=== PATIENT | male | born 1945 | race Caucasian/White ===

== ENCOUNTER 2020-05-24 10:07 | Observation (INO) ==
[2020-05-24] MEDS ORDERED: IOPAMIDOL 100 ML BOTTLE IV ONE (10:08)
[2020-05-24 10:25] LABS: POC Blood Urea Nitrogen 22 mg/dl (8-23); POC CO2 24 mmol/L (22-30); POC Calcium, Ionized 1.08 mmol/L (1.16-1.32); POC Chloride 104 mmol/L (96-108); POC Creatinine 1.1 mg/dl (0.7-1.2); POC Glucose, Random 96 mg/dL (70-105); POC Potassium 3.9 mmol/L (3.3-5.1); POC Sodium 140 mmol/L (133-145)
--- NOTE | 2020-05-24 10:31 | Cat Scan Report ---
History: Acute stroke symptoms TECHNIQUE: The brain was imaged without contrast at 2.5 mm intervals. The radiation exposure was limited using dose reduction technology. FINDINGS: There is a moderate-sized old infarct with encephalomalacia involving cortex and subcortical white matter laterally in the right frontal lobe. There is also a large old lacunar infarct with encephalomalacia in the anterior limb of the right internal capsule and involving the lateral border of the head of the right caudate nucleus. A small old cortical infarct is present high and posteriorly in the right parietal lobe. No acute infarct is identified. There is no hemorrhage or mass effect. Patient has mild to moderate bilateral frontal and milder temporal and cerebellar atrophy. No abnormal extra-axial fluid collection is present. The ventricles are normal in size allowing for atrophy. There is no prior study available for comparison. 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
[2020-05-24 10:44] LABS: POC Pro Time 11.6 sec (11.9-14.5)
--- NOTE | 2020-05-24 11:11 | Cat Scan Report ---
History: Acute stroke symptoms TECHNIQUE: Following injection of intravenous nonionic contrast, arterial phase images were acquired of the head and neck. Sagittal and coronal images were created both head and neck separately. Curvilinear reformatted images were also created of the cervical carotid arteries. Radiation exposure was limited using dose reduction technology. FINDINGS: NECK: The aortic arch is normal in caliber and there is minimal plaque formation. Great vessels arising from the aorta are normal. Common carotid arteries are normal bilaterally. Small amount calcified plaque is present in the carotid bifurcations bilaterally. This is causing less than 20% stenosis in the proximal right external carotid. There is no stenosis of the internal carotids. No ulcerated plaque is present. Distal internal carotids are tortuous but normal in caliber. Right vertebral artery is larger than the left. There are small eccentric, nonstenotic plaques in the left vertebral artery at the foramen magnum. There is no plaque formation in the right vertebral. The basilar artery is normal. Head: There are small eccentric plaques along the [place]err[place] of the cavernous portions of both internal carotids. These are not causing stenosis. The supraclinoid internal carotids are normal. The [place] is normal. There is absent blood flow in the old infarct involving cortex and subcortical white matter in the right frontal lobe. This is due to occlusion of the anterior branches of the right middle cerebral artery. Mildly diminished blood flow seen in the posterior aspect of the right parietal lobe, where the small cortical/subcortical white matter infarct was identified on the preceding unenhanced head CT. No thrombus is identified within the intracranial arteries. There is no evidence of an aneurysm or vascular malformation. No enhancing lesion is present within the brain. 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
[2020-05-24 11:12] LABS: Basophils # (Auto) 0.28 K/mcL (0.00-0.30); Basophils % (Auto) 2.5 % (0.0-2.0); Eosinophils # (Auto) 0.25 K/mcL (0.00-0.70); Eosinophils % (Auto) 2.2 % (0.0-7.0); Granulocytes % (Auto) 77.2 % (38.0-78.0); Hematocrit 49.3 % (40.1-51.0); Lymphocytes # (Auto) 1.54 K/mcL (1.50-4.80); Lymphocytes % (Auto) 13.8 % (15.5-49.0); Mean Cell Volume 83.6 fL (80.0-100.0); Mean Corpuscular HGB Conc 30.4 g/dL (31.0-36.0); Mean Platelet Volume 9.8 fL (7.4-10.4); Monocytes # (Auto) 0.48 K/mcL (0.10-0.90); Monocytes % (Auto) 4.3 % (1.0-12.0); Platelet Count 549 K/mcL (140-440); Red Cell Distribution Width 21.2 % (11.5-14.5); WBC 11.2 K/mcL (4.50-11.00)
[2020-05-24 11:36] LABS: ALT/SGPT 21 U/l (0-40); AST/SGOT 29 U/l (0-37); Albumin 4.2 gm/dL (3.2-5.2); Albumin/Globulin Ratio 1.8 (1.0-2.3); Alkaline Phosphatase 86 U/L (39-117); Bilirubin,Total 0.9 mg/dL (0.0-1.0); Blood Urea Nitrogen 20 mg/dl (8-23); Calcium 8.8 mg/dl (8.6-10.4); Carbon Dioxide 22 mmol/L (22-30); Chloride 103 mmol/L (96-108); Globulin 2.4 gm/dL (2.2-3.7); Glomerular Filtration Rate 88; Glucose 91 mg/dL (70-105)
[2020-05-24] MEDS ORDERED: ASPIRIN 81 MG TAB.CHEW CHEWED ONE (11:51)
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
[2020-05-24 12:37] LABS: Appearance,Urine CLEAR; Bilirubin,Urine NEG (NEG); Color,Urine STRAW; Culture Indicated,Urine NO; Glucose,Urine (UA) NEGATIVE (NEG); Ketones,Urine NEG (NEG); Leukocyte Esterase,Urine NEG /uL (NEG); Nitrate,Urine NEG (NEG); Protein,Urine NEG (NEG); Specific Gravity,Urine 1.021 (1.000-1.035); Urine Blood NEG mg/dL (<0.03); Urobilinogen,Urine NEG (NEG)
--- NOTE | 2020-05-24 14:08 | Magnetic Resonance Report ---
History: Acute stroke symptoms, old right hemispheric infarcts TECHNIQUE: Stroke protocol was performed with sagittal T1, axial T2 FLAIR, axial gradient and axial diffusion and ADC map images. FINDINGS: In the posterior periphery of the right cerebellar hemisphere the diffusion-weighted sequence reveals a 2.5 mm round lesion with intermediate signal, which is not clearly identified on ADC map or T2. This may be a tiny subacute infarct. No acute infarct is seen. There is a moderate-sized old infarct with encephalomalacia, located laterally in the right frontal lobe. Smaller cortical and subcortical white matter infarct is present posteriorly and high in the right parietal lobe. There is also a large lacunar infarct at the interface between the head of the right caudate nucleus and the anterior limb of the right internal capsule. T2 weighted images reveal patchy areas of increased signal, adjacent to the lateral ventricles in the frontal and parietal lobes bilaterally consistent with white matter ischemia or degeneration. There is no intracranial hemorrhage or mass. The ventricles are normal in size. IMPRESSION: No acute infarct Possible tiny subacute infarct in the right cerebellar hemisphere Stable old infarcts in the right hemisphere located in a watershed distribution Interpreted and Authenticated by: Canelo Ruiz 05/24/20
[2020-05-24] MEDS ORDERED: 0.9 % SODIUM CHLORIDE 1,000 ML IV SCH ×2 (15:15→17:17)
--- NOTE | 2020-05-24 17:07 | Discharge Summary ---
Discharge Provider Provider Patient information: Note initiated : 05/24/20 at 5:06 pm Service Date, if different from initiated Date: [] Patient: Pratik Arias 75 y/o M admitted on 05/24/20 for altered loc. Chief Complaint: [] Date of admission: 05/24/20 17:00 Discharge date: 05/25/20 Primary care physician: Lima Live DO Consults: 05/24/20 Consult to Physician [CONS] Stat Comment: Consulting Provider: Oswaldo Waller Reason For Exam: Physician to Consult Discharge Meds Discharge Medications Home Medications atorvastatin 10 mg tablet 10 mg PO QHS #90 tab 08/10/19 [Rx Confirmed 05/24/20 Last Taken 1 Day Ago ~05/08/20] citalopram 10 mg tablet 10 mg PO QDAY #30 tab 04/21/20 [Rx Confirmed 05/24/20 Last Taken 05/08/20] tamsulosin 0.4 mg capsule 0.4 mg PO QDAY #90 cap 05/11/20 [Rx Confirmed 05/24/20 Last Taken Unknown] aspirin [Enteric Coated Aspirin] 81 mg PO QDAY #30 tab 05/24/20 [Rx Last Taken Unknown] hydroxyurea 500 mg PO BID 05/24/20 [History Confirmed 05/24/20 Last Taken Unknown] COURSE Hospital Course Hospital course: History of present illness: Mr. Arias is a 75 year old M Who presents to the ED with his for confusion. According his he appeared to be normal last night but this morning he did not seem to make any sense. When he woke up took a shower he was sitting on the bed and his went in so she was ready to go as she had an appointment with the general office dispatcher this morning. He said why and she told him about the cataract procedure and he said once that and then he asked if it was her or him. She called primary care care physician who told her to go into the ED for further evaluation and imaging. Per the he just seemed quite confused and was not making a lot of sense. She did not note any facial droop or slurring or weakness and his speech was clear. In the ED his blood pressure was 157/90 initially. Neurologist was called and reviewed the CT imaging and felt that there is possibly a subtle acute infarct with multiple old infarcts. No further recommendations. He has been off aspirin for several weeks. He is being treated for polycythemia vera with hydroxyurea. The is not aware of any strokes in the past but there was an episode in the past that was unusual and she explained that to her primary care physician thought that might be a TIA. Patient has headache but chronic headaches. Otherwise no complaints. He denies any numbness tingling focal weakness speech deficits. 05/25 Better today. Memory improving. For the past complaints. Stable for discharge. We will send referral to neurology for history of headaches migraines and stroke. A: *Acute/subacute CVA (h/o CVA's): confusion -ABCD=4 - *Polycythemia vera/essential thrombocythemia: -Recently started on hydroxyurea, platelets imroved since starting *h/o PUD with h. pylori: *Depression: *troponin elevation: repeat no change -EKG unremarkable and no chest pain. likely 2/2 to primary assessment Discharge diagnosis: Stroke polycythemia vera Secondary discharge diagnosis: History of peptic ulcer disease depression Time Spent with Patient Time attestation: Total time spent providing and/or coordinating discharge services: Time spent: Greater than 30 minutes EXAM Constitutional Vitals: Temp Pulse Resp BP Pulse Ox 97.5 F 58 L 15 140/70 98 05/24/20 10:10 05/24/20 16:37 05/24/20 16:37 05/24/20 16:31 05/24/20 16:37 Discharge Data Data Completed and Pending Labs on day of discharge: Labs from last 24 hours 05/24/20 05/24/20 05/24/20 14:01 11:51 11:41 WBC RBC Hgb Hct POC Hct MCV MCH MCHC RDW Plt Count MPV Gran % Lymph % (Auto) [place] % (Auto) Eos % (Auto) Baso % (Auto) Gran # Lymph # (Auto) [place] # (Auto) Eos # (Auto) Baso # (Auto) POC PT POC INR APTT 35 POC Sodium Sodium POC Potassium Potassium POC Chloride Chloride Carbon Dioxide POC Total CO2 Anion Gap POC BUN BUN Creatinine POC Creatinine GFR Calculation Glucose POC Glucose Calcium POC WB Ioniz Calcium Total Bilirubin AST ALT Alkaline Phosphatase Troponin T 0.17 H* Total Protein Albumin Globulin Albumin/Globulin Ratio Urine Color Straw Urine Appearance Clear Urine pH 7.0 Ur Specific [place] 1.021 Urine Protein Neg Urine Glucose (UA) Negative Urine Ketones Neg Urine Occult Blood Neg Urine Nitrate Neg Urine Bilirubin Neg Urine Urobilinogen Neg Ur Leukocyte Esterase Neg Ur Culture Indicated? No 05/24/20 05/24/20 05/24/20 10:20 10:20 10:20 WBC RBC Hgb Hct POC Hct 51.0 MCV MCH MCHC RDW Plt Count MPV Gran % Lymph % (Auto) [place] % (Auto) Eos % (Auto) Baso % (Auto) Gran # Lymph # (Auto) [place] # (Auto) Eos # (Auto) Baso # (Auto) POC PT 11.6 L POC INR 1.0 APTT TNP POC Sodium 140 Sodium 139 POC Potassium 3.9 Potassium 4.0 POC Chloride 104 Chloride 103 Carbon Dioxide 22 POC Total CO2 24 Anion Gap 14.0 POC BUN 22 BUN 20 Creatinine 0.8 POC Creatinine 1.1 GFR Calculation 88 Glucose 91 POC Glucose 96 Calcium 8.8 POC WB Ioniz Calcium 1.08 L Total Bilirubin 0.9 AST 29 ALT 21 Alkaline Phosphatase 86 Troponin T 0.16 H* Total Protein 6.6 Albumin 4.2 Globulin 2.4 Albumin/Globulin Ratio 1.8 Urine Color Urine Appearance Urine pH Ur Specific [place] Urine Protein Urine Glucose (UA) Urine Ketones Urine Occult Blood Urine Nitrate Urine Bilirubin Urine Urobilinogen Ur Leukocyte Esterase Ur Culture Indicated? 05/24/20 10:20 WBC 11.2 H RBC 5.90 Hgb 15.0 Hct 49.3 POC Hct MCV 83.6 MCH 25.4 L MCHC 30.4 L RDW 21.2 H Plt Count 549 H MPV 9.8 Gran % 77.2 Lymph % (Auto) 13.8 L [place] % (Auto) 4.3 Eos % (Auto) 2.2 Baso % (Auto) 2.5 H Gran # 8.64 H Lymph # (Auto) 1.54 [place] # (Auto) 0.48 Eos # (Auto) 0.25 Baso # (Auto) 0.28 POC PT POC INR APTT POC Sodium Sodium POC Potassium Potassium POC Chloride Chloride Carbon Dioxide POC Total CO2 Anion Gap POC BUN BUN Creatinine POC Creatinine GFR Calculation Glucose POC Glucose Calcium POC WB Ioniz Calcium Total Bilirubin AST ALT Alkaline Phosphatase Troponin T Total Protein Albumin Globulin Albumin/Globulin Ratio Urine Color Urine Appearance Urine pH Ur Specific [place] Urine Protein Urine Glucose (UA) Urine Ketones Urine Occult Blood Urine Nitrate Urine Bilirubin Urine Urobilinogen Ur Leukocyte Esterase Ur Culture Indicated? Discharge Plan Patient/Caregiver Discharge Instructions Activity: increase activity as tolerated Diet: Cardiac Activity Restrictions/Additional Instructions: f/u with Neurologist 3-10 days for stroke/Migraines Prescriptions: New aspirin [Enteric Coated Aspirin] 81 mg tablet,delayed release (DR/EC) 81 mg PO QDAY Qty: 30 RF: 0 Continued atorvastatin 10 mg tablet 10 mg tablet 10 mg PO QHS Qty: 90 RF: 1 citalopram 10 mg tablet 10 mg PO QDAY Qty: 30 RF: 5 tamsulosin [Flomax] 0.4 mg capsule 0.4 mg PO QDAY Qty: 90 RF: 0 hydroxyurea 500 mg capsule 500 mg PO BID RF: 0 Follow Up Plan Follow up with: Lima Live DO [Primary Care Provider] - Patient Disposition: Home, Self-Care Rehab Potential: Fair Overall status at discharge: patient is progressing back to baseline Discharge Orders: Discharge Order (Routine); Ordered 05/25/20 Ordered By: Oswaldo Waller
[2020-05-24] MEDS ORDERED: IPRATROPIUM/ALBUTEROL 3 ML AMPUL.NEB NEB PRN (17:17)
[2020-05-24] MEDS ORDERED: POLYETHYLENE GLYCOL 3350 17 GM PACKET PO PRN (17:17)
[2020-05-24] MEDS ORDERED: SENNOSIDES 1 TABLET PO PRN (17:17)
[2020-05-24] MEDS ORDERED: POTASSIUM CHLORIDE 40 MEQ in DEXTROSE 5% IN WATER 500 ML IV PRN (17:17)
[2020-05-24] MEDS ORDERED: POTASSIUM CHLORIDE 20 MEQ TABLET PO PRN ×2 (17:17)
[2020-05-24] MEDS ORDERED: ONDANSETRON 4 MG/2 ML VIAL IV PRN (17:17)
[2020-05-24] MEDS ORDERED: MAGNESIUM SULFATE 2 GM/50 ML BAG IV PRN (17:17)
[2020-05-24] MEDS ORDERED: ATORVASTATIN 40 MG TABLET PO SCH (21:00)
[2020-05-24] MEDS: DOCUSATE SODIUM 100 MG CAPSULE PO SCH (21:03)
[2020-05-24] MEDS: FAMOTIDINE 20 MG TABLET PO SCH (21:03)
[2020-05-24] MEDS: 0.9 % SODIUM CHLORIDE 10 ML SYRINGE IV SCH (21:04)
[2020-05-24] MEDS: HYDROXYUREA 500 MG CAPSULE PO SCH (21:28)
[2020-05-25] MEDS: 0.9 % SODIUM CHLORIDE 10 ML SYRINGE IV SCH (05:50)
[2020-05-25 06:47] LABS: Basophils # (Auto) 0.26 K/mcL (0.00-0.30); Basophils % (Auto) 2.6 % (0.0-2.0); Granulocytes % (Auto) 73.1 % (38.0-78.0); Hematocrit 46.6 % (40.1-51.0); Hemoglobin 14.1 g/dL (13.7-17.5); Lymphocytes # (Auto) 1.63 K/mcL (1.50-4.80); Lymphocytes % (Auto) 16.3 % (15.5-49.0); Mean Corpuscular HGB Conc 30.3 g/dL (31.0-36.0); Mean Platelet Volume 10.9 fL (7.4-10.4); Platelet Count 495 K/mcL (140-440); RBC 5.55 M/mcL (4.63-6.08); Red Cell Distribution Width 21.2 % (11.5-14.5)
[2020-05-25 07:19] LABS: HDL Cholesterol 45 mg/dl (>40); LDL Cholesterol,Calculated 85 mg/dl (SEE CHART); Non-HDL Cholesterol 106 (LDL TARGET+30); Triglycerides 108 mg/dl (<150)
[2020-05-25 07:20] LABS: ALT/SGPT 15 U/l (0-40); AST/SGOT 24 U/l (0-37); Albumin 3.7 gm/dL (3.2-5.2); Albumin/Globulin Ratio 1.8 (1.0-2.3); Alkaline Phosphatase 76 U/L (39-117); Bilirubin,Direct 0.2 mg/dL (0.0-0.3); Blood Urea Nitrogen 14 mg/dl (8-23); Calcium 8.6 mg/dl (8.6-10.4); Carbon Dioxide 23 mmol/L (22-30); Chloride 106 mmol/L (96-108); Globulin 2.1 gm/dL (2.2-3.7); Glomerular Filtration Rate 88; Glucose 78 mg/dL (70-105); Lactate Dehydrogenase 276 U/L (94-250); Phosphorous 2.9 mg/dL (2.7-4.5); Triglycerides 106 mg/dl (<150); Uric Acid 5.7 mg/dL (2.5-8.0)
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
[2020-05-25] MEDS ORDERED: ASPIRIN 81 MG TAB.CHEW CHEWED SCH (09:00)
[2020-05-25] MEDS ORDERED: ENOXAPARIN 40 MG/0.4 ML SYRINGE SQ SCH (09:00)
[2020-05-25] MEDS ORDERED: TAMSULOSIN 0.4 MG CAPSULE PO SCH (09:00)
[2020-05-25] MEDS ORDERED: CITALOPRAM 20 MG TABLET PO SCH (09:00)
[2020-05-25] MEDS: DOCUSATE SODIUM 100 MG CAPSULE PO SCH ×2 (09:11→09:40)
[2020-05-25] MEDS: HYDROXYUREA 500 MG CAPSULE PO SCH (09:45)
[2020-05-25] MEDS: FAMOTIDINE 20 MG TABLET PO SCH (09:58)
== END 2020-05-25 10:00 | disposition home or self-care (01) ==
LOC: ICU 10:07 → ED 10:07 → ICU 17:01
PROVIDERS: ADMIT Internal Medicine; ATTEND Internal Medicine

== ENCOUNTER 2023-12-20 17:40 | Inpatient (IN) ==
[2023-12-20] MEDS ORDERED: IOPAMIDOL 100 ML BOTTLE IV ONE (17:41)
[2023-12-20 18:35] LABS: POC Calcium, Ionized 1.2 (1.16-1.32); POC Creatinine 0.9 (0.6-1.2); POC Potassium 3.8 (3.3-5.1)
[2023-12-20] MEDS: ONDANSETRON 4 MG/2 ML VIAL IV ONE (18:59)
[2023-12-20 19:07] LABS: ALT/SGPT < 5 U/L (<40); AST/SGOT 30 U/L (<40); Alkaline Phosphatase 195 U/L (39-117); Bilirubin,Direct 0.3 mg/dL (<0.3); Bilirubin,Total 0.8 mg/dL (0.1-1.0); Globulin 2.3 gm/dL (2.2-3.7)
[2023-12-20 19:09] LABS: Basophils # (Auto) 0.63 K/mcL (0.00-0.30); Basophils % (Auto) 1.7 % (0.0-2.0); Eosinophils # (Auto) 0.59 K/mcL (0.00-0.70); Eosinophils % (Auto) 1.6 % (0.0-7.0); Hematocrit 47.3 % (40.1-51.0); Hemoglobin 14.5 g/dL (13.7-17.5); Lymphocytes # (Auto) 1.55 K/mcL (1.50-4.80); Lymphocytes % (Auto) 4.1 % (15.5-49.0); Mean Cell Volume 87.4 fL (80.0-100.0); Mean Corpuscular HGB Conc 30.7 g/dL (31.0-36.0); Monocytes % (Auto) 1.6 % (1.0-12.0); Neutrophils % (Auto) 85.5 % (38.0-78.0); Platelet Count 323 K/mcL (140-440); RBC 5.41 M/mcL (4.63-6.08); Red Cell Distribution Width 20.6 % (11.5-14.5); WBC 37.5 K/mcL (4.5-11.0)
[2023-12-20] MEDS: 0.9 % SODIUM CHLORIDE 1,000 ML IV ONE (19:30)
[2023-12-20] MEDS: niCARdipine 25 MG in 0.9 % SODIUM CHLORIDE 240 ML IV ONE (19:31)
[2023-12-20 19:33] LABS: INR 1.1 (0.9-1.1)
[2023-12-20] MEDS: morphine 2 MG/ML VIAL IV ONE (20:23)
[2023-12-20] MEDS: PIPERACILLIN SODIUM/TAZOBACTAM 4.5 GM in DEXTROSE 5% IN WATER 50 ML IV ONE (20:24)
[2023-12-20] MEDS: diphenhydrAMINE 50 MG/ML VIAL IV ONE (20:28)
[2023-12-20] MEDS: HYDROmorphone 1 MG/ML SYRINGE ONE (21:45)
[2023-12-20] MEDS: LORazepam 2 MG/ML VIAL ONE (21:45)
[2023-12-20] MEDS: LORazepam 2 MG/ML VIAL IV ONE (21:45)
[2023-12-20] MEDS ORDERED: ONDANSETRON 4 MG ODT TABLET SL PRN (22:46)
[2023-12-20] MEDS: 0.9 % SODIUM CHLORIDE 10 ML SYRINGE IV SCH (22:53)
[2023-12-20] MEDS: 0.9 % SODIUM CHLORIDE 1,000 ML IV SCH (22:55)
[2023-12-21] MEDS: HYDROmorphone 1 MG/ML SYRINGE IV PRN (00:25)
[2023-12-21] MEDS: LORazepam 2 MG/ML VIAL IV PRN (00:25)
[2023-12-21] MEDS: LORazepam 2 MG/ML VIAL ONE ×2 (00:25→04:52)
[2023-12-21] MEDS: HYDROmorphone 1 MG/ML SYRINGE ONE ×3 (00:27→06:48)
[2023-12-21] MEDS: ONDANSETRON 4 MG/2 ML VIAL IV PRN (04:53)
[2023-12-21] MEDS: ONDANSETRON 4 MG/2 ML VIAL ONE (04:54)
[2023-12-21] MEDS: LACTOPEROXI/GLUC OXID/POT THIO 1 EACH GEL..EA. TOPICAL PRN (15:02)
== END 2023-12-21 21:40 | disposition expired | DRG 82 ==
LOC: ED 17:40 → ICU 22:28
PROVIDERS: ADMIT Internal Medicine; ATTEND Internal Medicine